=== PATIENT | female | born 1985 | race Caucasian/White ===

== ENCOUNTER 2016-12-10 11:04 | Emergency (ER) | payer MEDICAID ==
[~2016-12-10] VITALS: Wt 78.0 kg
[~2016-12-10 11:04] MED LIST: ALBU8.5H3 INH; IBUP800T25 PO; IPRA4AER INHALATION; PRED20TA PO; PRENAT PO
[2016-12-10] MEDS ORDERED: IPRATROPIUM (NEB) 0.5 MG/2.5 ML AMP NEB STA (11:20)
[2016-12-10] MEDS ORDERED: ALBUTEROL 0.083% (NEB) 2.5 MG/3 ML AMP NEB STA (11:20)
--- NOTE | 2016-12-10 11:27 | ERD ---
ER Documentation Chief Complaint Date/Time DATE: 12/10/16 TIME: 11:25 Chief Complaint ASTHMA WITH MILD SOB. FOR 2 DAYS. NO FEVER. NO ACESS MUSCLE USE HPI 31 yo female with a history of asthma comes in with shortness of breath since yesterday. She states she has an inhaler but she ran out 2 days ago. She reports some wheezing. She denies chest pain, dizziness. She denies fevers or chills or cough. ROS All systems reviewed and are negative except as per history of present illness. Medications Home Meds Active Scripts Fluticasone Propionate* (Fluticasone Propionate* Nasal) 50 Mcg/Bunn - 16 Gm Bunn.susp, 1 SPRAY NASAL BID, #1 BOTTLE TO EACH NOSTRIL Prov:BERNICE MAYER PA-C 12/10/16 Cetirizine Hcl* (Zyrtec*) 10 Mg Capsule, 10 MG PO DAILY, #30 TAB.CHEW Prov:BERNICE MAYER PA-C 12/10/16 Prednisone* (Prednisone*) 20 Mg Tab, 40 MG PO DAILY for 4 Days, TAB Prov:BERNICE MAYER PA-C 12/10/16 Albuterol Sulfate* (Proair HFA*) 8.5 Gm Hfa.aer.ad, 2 PUFF INH Q4, #1 INHALER Prov:BERNICE MAYER PA-C 12/10/16 Ibuprofen* (Ibuprofen*) 800 Mg Tablet, 800 MG PO Q8 for 10 Days, #30 TAB Prov:CLEM EVANGELISTA DO 04/26/16 Prednisone* (Prednisone*) 20 Mg Tab, 20 MG PO DAILY for 5 Days, TAB Prov:CLEM EVANGELISTA DO 04/26/16 Albuterol Sulfate* (Proair HFA*) 8.5 Gm Hfa.aer.ad, 2 PUFF INH Q4, #1 INHALER Prov:CLEM EVANGELISTA DO 04/26/16 Albuterol/Ipratropium* (Combivent Respimat*) 20-100 Mcg/Inh - 4 Gm Aer.w.adap, 1 PUFF INHALATION QID, #1 INHALER Prov:JACK RIOS MD 08/04/15 Reported Medications Multivit/Min/Fol Ac/Iron/Pren* ( S*) 1 Tab Tab, 1 TAB PO DAILY, TAB 7/18/15 Allergies Allergies: Coded Allergies: No Known Allergy (Verified , 12/10/16) PMhx/Soc History of Surgery: No Anesthesia Reaction: No Hx Neurological Disorder: No Hx Respiratory Disorders: Yes (asthma) Hx Cardiac Disorders: No Hx Psychiatric Problems: No Hx Miscellaneous Medical Probl: No Hx Alcohol Use: No Hx Substance Use: No Hx Tobacco Use: No Smoking Status: Never smoker Physical Exam Vitals Vital Signs Date Time Temp Pulse Resp B/P Pulse Ox O2 Delivery O2 Flow Rate FiO2 12/10/16 12:11 87 20 139/72 99 Room Air 12/10/16 11:36 86 22 98 21 12/10/16 11:08 98.6 86 22 146/75 98 Physical Exam General: Well-developed, well-nourished. The patient appears in no acute distress. HEENT: Head is normocephalic, atraumatic. No scleral icterus. Neck: Supple. Nontender. Lungs: Faint wheezing bilaterally lower lung angel, no rales or rhonchi. Nonlabored. Heart: Regular rate and rhythm. S1 and S2 are normal. No murmurs, gallops, or rubs. Abdomen: Soft, nontender, nondistended. Bowel sounds are normoactive. Extremities: No clubbing or cyanosis. Normal pulses. Moving extremities x 4. No weakness. Neurologic: Alert and oriented 3. No focal deficits. Skin: Normal turgor. No rash or lesions. Results 24 hrs Current Medications Medications (Trade) Dose Ordered Sig/William Route PRN Reason Start Time Stop Time Status Last Admin Dose Admin Albuterol (Proventil 0.083% (Neb)) 5 mg ONCE STAT NEB 12/10/16 11:20 12/10/16 11:21 DC 12/10/16 11:33 Ipratropium [place] (Atrovent 0.02% (Neb)) 0.5 mg ONCE STAT NEB 12/10/16 11:20 12/10/16 11:21 DC 12/10/16 11:33 Procedures/MDM ED course: Patient was given albuterol 5 mg nebulized breathing treatment. We auscultation shows improved breath sounds, she reports to be feeling better at this time. Medical decision making: This 31-year-old female presents with a mild asthma exacerbation, feeling better after breathing treatment is stable for outpatient management. She has scant wheezing, no signs of any respiratory distress. She reports some nasal congestion at this time, and is requesting something for allergies, she will be given Zyrtec as well as fluticasone however no refill her medications. Departure Diagnosis: Primary Impression: Asthma Condition: BERNICE Greenfield PA-C Dec 10, 2016 11:27
[2016-12-10] MEDS ORDERED: PRED20TA PO (11:59)
[2016-12-10] MEDS ORDERED: ALBU8.5H3 INH (11:59)
[2016-12-10] MEDS ORDERED: FLUT16SP17 NASAL (12:01)
[2016-12-10] MEDS ORDERED: CETI10CA PO (12:01)
[2016-12-10 12:11] VITALS: BP 139/72; PULSE 87; RESP 20
== END 2016-12-10 12:12 | disposition home or self-care (01) ==
LOC: FTE 11:04
DX: J45.901 Unspecified asthma with (acute) exacerbation (principal)
CPT/HCPCS: 94664; Z7610